=== PATIENT | male | born 1950 | race Caucasian/White ===

== ENCOUNTER 2018-04-17 08:18 | Day surgery (SDC) | payer BC, MEDICARE ==
[~2018-04-17 08:18] MED LIST: PROPOFOL 500 MG/50 ML EMU IV ONE
[2018-04-17] MEDS ORDERED: PROPOFOL 500 MG/50 ML EMU IV ONE (09:59)
[2018-04-17 10:30] VITALS: BP 112/68; PULSE 88; RESP 18; TEMP 97.8; O2SAT 93
[2018-04-18 00:19] LABS: BASOPHILS % (AUTO) 1 % (0-3); EOSINOPHILS % (AUTO) 2 % (0-9); HEMATOCRIT 41 % (39-53); HEMOGLOBIN 13.8 gm/dl (13.5-17.7); LYMPHOCYTES % (AUTO) 13.3 % (10-50); MEAN CORPUSCULAR VOLUME 91 fL (80-100); MONOCYTES % (AUTO) 8.1 % (0-12); NEUTROPHILS % (AUTO) 75.9 % (37-80)
[2018-04-18 00:33] LABS: CALCIUM 8.7 mg/dl (8.5-10.1); CARBON DIOXIDE 22.9 mEq/L (21-32); CREATININE 3.37 mg/dl (0.80-1.30); POTASSIUM 3.8 mMol/L (3.5-5.1); TROP I 0.195 ng/ml (0.000-0.056)
[2018-04-18 00:36] LABS: INR 1.02 (0.86-1.12)
== END 2018-04-17 10:45 | disposition home or self-care (01) | DRG 281 ==
LOC: SURG 08:18
PROVIDERS: ATTEND Surgery
DX: I21.4 Non-ST elevation (NSTEMI) myocardial infarction (principal); K57.32 Diverticulitis of large intestine without perforation or abscess without bleeding; R06.02 Shortness of breath; R20.2 Paresthesia of skin; R68.84 Jaw pain; I10 Essential (primary) hypertension; F17.200 Nicotine dependence, unspecified, uncomplicated; R07.9 Chest pain, unspecified; Z12.11 Encounter for screening for malignant neoplasm of colon; D12.8 Benign neoplasm of rectum; D12.2 Benign neoplasm of ascending colon; D12.3 Benign neoplasm of transverse colon
CPT/HCPCS: 71045; 80048; 82550; 84484; 85025; 85610; 85730; 93005; 96365; 96366; 99070; 99285; 99291; J1644; A9270-GY; J2704; J3490

== ENCOUNTER 2018-04-17 23:52 | Emergency (ER) | payer BC | END 2018-04-18 02:25 | disposition short-term general hospital (02) | LOC: ED 23:52 ==

== ENCOUNTER 2018-04-26 10:29 | Day surgery (SDC) | payer BC ==
[2018-04-26] MEDS ORDERED: BUPIVACAINE HCL 0.25% MPF 30 ML SOL INFIL ONE (11:12)
[2018-04-26] MEDS: DEXAMETHASONE SOD PHOS PF 10 MG/ML SOL IJ ONE ×4 (11:24→11:39)
[2018-04-26 11:37] VITALS: RESP 16
[2018-04-26 12:01] VITALS: BP 131/86; PULSE 75; TEMP 97.6; O2SAT 94
== END 2018-04-26 12:05 | disposition home or self-care (01) | DRG 552 ==
LOC: SURG 10:29
PROVIDERS: ATTEND Nurse Anesthetist, Certified Registered
DX: M48.062 Spinal stenosis, lumbar region with neurogenic claudication (principal)
CPT/HCPCS: J1100